=== PATIENT | female | born 1955 | race Caucasian/White ===

== ENCOUNTER 2024-11-02 09:24 | Outpatient (REF) | payer OTHER, SELFPAY ==
--- OUTSIDE RECORDS SUMMARY | 2024-11-02 11:05 | XMS_ITS | Clinical Summary ---
Author Organization [facility] ity Address [address] [place] [address] Care Team Providers Care Extruding Machine Operator Name Role Phone Stefan Mer Denae WALL MAN Primary Care Provider [phone] Allergies Active Allergy Reactions Criticality Noted Date Comments Nicotine 02/04/2022 Hallucinations Medications cilostazoL (PLETAL) 50 mg tablet TAKE 1 TABLET BY MOUTH TWICE DAILY 180 tablet 1 4 Active alirocumab (Praluent Pen) 150 mg/mL pen injector Inject 1 mL into the skin every 14 days. 4 Active meclizine (ANTIVERT) 25 mg tablet Take 1 Tablet by mouth 3 times daily as needed. Active METOCLOPRAMIDE HCL ORAL Take 10 mg by mouth daily. Active omeprazole (PriLOSEC) [address] capsule Take 1 Capsule by mouth daily. Active metoprolol succinate (TOPROL-XL) 50 mg 24 hr tablet Take 1 Tablet by mouth daily. 2 Active cyclobenzaprin e (FLEXERIL) 10 mg tablet Take 10 mg by mouth as needed. Active meloxicam (MOBIC) 15 mg tablet Take 15 mg by mouth as needed. Active aspirin 81 mg chewable tablet 81 mg daily. 6 Active levothyroxine (SYNTHROID, LEVOTHROID) 150 mcg tablet Take 150 mcg by mouth daily. Active metFORMIN (GLUCOPHAGE) 1,000 mg tablet Take 1,000 mg by mouth 2 Times Daily. Active nitroglycerin (NITROSTAT) 0.[address] under the tongue. Place 1 Tablet under the tongue every 5 minutes as needed for Chest pain. 3 Active clopidogreL (PLAVIX) 75 mg tablet TAKE 1 TABLET BY MOUTH DAILY 90 tablet 1 5 Active clopidogreL (PLAVIX) 75 mg tablet TAKE 1 TABLET BY MOUTH DAILY 4 10/20/19 25 Discontinued Active Problems Problem Noted Date Diagnosed Date Peripheral vascular disease ([facility] V24) 2022 Overview (09/12/2024): Last Assessment & Plan: The patient reports continued claudication symptoms; however, she reports that they are much improved from the last time she saw Dr. Cosby in November 2022. She is able to continue to push through them and remain active. She has no ulcers or wounds; she does appear to have some rest pain, but once again it does not appear to be intrusive and she reiterates that it is improved from previous. She is unsure if she is taking her cilostazol today; she will call us once she is home and we will review her medication list in detail with her ensure that it is correct. Otherwise, continue with conservative medical management including Eliquis, cilostazol, daily aspirin, and Praluent. She also remains on Plavix for both her coronary artery disease and her vascular disease. She will call with any new or worsening symptoms. Claudication of both lower extremities ([facility] V24) 02/09/2022 Overview (09/12/2024): Last Assessment & Plan: As above. Improved from her last visit with Dr. Cosby in 11/2022 per the patient's report; she will call with any new or worsening symptoms including nonhealing wounds or ulcers. Anxiety 02/04/2022 Transient ischemic attack (TIA) 05/13/2021 Hypertriglyceridemia 05/01/2021 Coronary artery disease of n ative artery of [place] heart with stable angina pectoris ([facility] V24) 11/27/2020 Overview (09/12/2024): Last Assessment & Plan: The patient is now status post CABG with what she reports as ongoing and stable anginal symptoms that are relieved with rest and nitroglycerin; she reports that sometimes she is able to ignore them and they are not significant. We will continue with goal-directed medical therapies including beta-izabela, long-acting nitrates, Praluent, and aspirin; she will check when she gets home to make sure that she is taking isosorbide and call us as noted above. She remains on Plavix both for her coronary artery disease s well as her vascular disease. She is due to see her primary legal administrative secretary, Dr. Mireles, next month. Patient advised to seek emergency medical attention by calling 911 if they were to develop severe dyspnea, chest pain that did not resolve with rest or nitroglycerin, or if they were to faint. Diabetes mellitus type 2, no ninsulin dependent ([facility] V24, [facility] V28) 11/27/2020 Essential hypertension 11/27/2020 Overview (09/12/2024): Last Assessment & Plan: Blood pressure is well-controlled on current medical therapies including metoprolol and isosorbide; she reports she is unsure if she is taking her isosorbide today but she will check on this when she gets home and call us at which time we will review her med list in its entirety. Hyperlipidemia 11/27/2020 Overview (09/12/2024): Last Assessment & Plan: The patient's most recent lipid panel was completed 05/13/2022 revealing an LDL of 35; she has been stable on Praluent. LDL goal for this patient was a history of diabetes as well as coronary artery disease and peripheral arterial disease is less than 55. Continue without change. Hypothyroidism 11/27/2020 NSTEMI (non-ST elevated myoc ardial infarction) ([facility] V24, [facility] V28) 11/27/2020 Surgical History Surgery Date Site/Laterality Comments CHOLECYSTECTOMY 02/17/2014 PROCEDURE: HISTORICAL CHOLECYSTECTOMY Medical History Medical History Date Comments TIA (transient ischemic attack) DX:TIA (transient ischemic attack) Chest pain, precordial DX:Chest pain, precordial Chronic back pain DX:Chronic jagruti k pain Depression DX:Depression Migraines DX:Migraines SOBOE (shortness of breath on exertion) DX:SOBOE (shortness of breath on exertion) Colitis DX:Colitis Family History Medical History Relation Name Comments Coronary artery disease Brother Coronary artery disease Father Relation Name Status Comments Brother Father Social History Tobacco Use Types Packs/Day Years Used Date Smoking Tobacco: Some Days Cigarettes Smokeless Tobacco: Current Alcohol Use Standard Drinks/Week Comments Never 0 (1 standard drink = 0.6 oz pur e alcohol) Comments Unknown Sex and Gender Information Value Date Recorded Sex Assigned at Not on file Legal Sex Female 5:35 AM EST Gender Identity Not on file Sexual Orientation Not on file Obstetrics History Last Filed Vital Signs Vital Sign Reading Time Taken Comments Blood Pressure 100/60 12/01/2023 9:16 AM EDT Sitting L Arm Pulse 76 12/01/2023 9:16 AM EDT Temperature - - Respiratory Rate - - Oxygen Saturation - - Inhaled Oxygen Concentration - - Weight 60.1 kg (132 lb 6.4 oz) 12/01/2023 9:16 AM EDT Height 157.5 cm (5' 2 ) 12/01/2023 9:16 AM EDT Body Mass Index 24.22 12/01/2023 9:16 AM EDT Plan of Treatment Upcoming Encounters Date Type Department Care Team (Late st Contact Info) Description 12/29/2024 8:10 AM EDT Office Visit [facility] [address] [place] [address] [place] [address] Dave Mccoy NP [address] [place] [address] Dr [address] [place] [address] Health Maintenance Due Date Last Done Comments Diabetes: Annual Foot Exam 01/24/1964 Diabetes: Annual Retina Eye Exam 01/24/1964 DTaP,Tdap,and Td Vaccines (1 - Tdap) 1973 Pneumococcal Vaccine: 50+ Years (1 of 2 - PCV) 1973 Zoster Vaccines (1 of 2) 01/24/2004 RSV Immunization Adult Patients (1 - Risk 60-74 years 1-dose series) 2014 Cholesterol Screening (Lipid Panel) 06/27/2022 Colorectal Cancer Screening: Colonoscopy 06/27/2022 Depression Screening 06/27/2022 Falls Risk Assessment 06/27/2022 Hepatitis C Screening 06/27/2022 Medicare Annual Wellness Visit 06/27/2022 Social Influencers of Health Screening 06/27/2022 Diabetes: Annual Urine Albumin-Creatinine Ratio (uACR) 07/01/2022 Diabetes: Blood Sugar Contro l Test (HGBA1C) 07/01/2022 Breast Cancer Screening 07/31/2023 07/31/19, 03/14/2018 COVID-19 Vaccine ( - 2023-2 5 season) 2024 Diabetes: Annual GFR (Glomerular Filtration Rate) 06/14/2024 06/14/2023 Hypertension/CHF/CAD Annual BMP Blood Test 06/14/2024 06/14/2023 Influenza Vaccine (Season Ended) 2025 Osteoporosis Screening (Bone Density Screening) 07/31/2031 07/31/2021, 03/14/2018 HIB Vaccines Aged Out No longer eligi ble based on patient's age to complete this topic HPV Vaccines Aged Out No longer eligi ble based on patient's age to complete this topic Hepatitis A Vaccines Aged Out No long er eligible based on patient's age to complete this topic Hepatitis B Vaccines Aged Out No long er eligible based on patient's age to complete this topic IPV Vaccines Aged Out No longer eligi ble based on patient's age to complete this topic MMR Vaccines Aged Out No longer eligi ble based on patient's age to complete this topic Meningococcal ACWY Vaccine Aged Out N o longer eligible based on patient's age to complete this topic Meningococcal B Vaccine Aged Out No l onger eligible based on patient's age to complete this topic RSV Immunization Patients Under 20 months Aged Out No longer eligible b ased on patient's age to complete this topic Varicella Vaccines Aged Out No longer eligible based on patient's age to complete this topic Procedures Procedure Name Priority Date/Time Associated Diagnosis Comments ANNUAL BMP BLOOD TEST Routine 06/14/2023 [facility] DEXA AXIAL SKELETON Routine 07/31/2021 9:17 AM EST Encounter for screening for osteoporosis [facility] SCREENING DIGITAL Routine 07/31/2021 8:55 AM EST Encounter for screening mammogram for malignant neoplasm of breast from Last 3 Months or Most Recently Relevant to Health Maintenance Results * Annual BMP Blood Test (06/14/2023) Annual BMP Blood Test abstracted Historical Provider HEALTH MAINTENANCE Final Result * [facility] DEXA AXIAL SKELETON (07/31/2021 9:17 AM EST) Anatomical Region Laterality Modality Mammography 07/31/2021 8:21 AM EST Narrative 07/31/2021 9:17 AM EST [facility] Diagnostic Imaging Department [address] [place] [id number] Patient: ??ARIEL LONG ?/Age/Sex: 1955 - Unit#: ??[id number] ? Location/Status: ??SPDIMAM/REG CLI ? Mnemonic/Ordering Site: ??MAMDEXAAX/SPMAM Ordering Physician: ??ANDRIY MANSFIELD MD [facility] Dexa Axial Skeleton - 07/31/21848 HISTORY: ??The patient is a 66-year-old postmenopausal female smoker with clinical concern for metabolic bone disease. FINDINGS: ??Dual energy x-ray absorptiometry of the lumbar spine and femurs is performed. The mean bone mineral density at L1-L4 is 1.292 gm/cm2 which is 110% of that of young normals and 131% of that of age matched controls. This yields a T-score of 0.9 and a Z-score of 2.5 and there is therefore no evidence of osteoporosis or osteopenia here. The mean bone mineral density of the femurs bilaterally is 1.001 gm/cm2 which is 99% of that of young normals and 119% of that of age matched controls. ??This yields a T-score of -0.1 and a Z-score of 1.3 and there is therefore no evidence of osteoporosis or osteopenia here. ??However, the T-score of the right femoral neck is -1.5 which is diagnostic of osteopenia. IMPRESSION: 1. Osteopenia. ??There has been an increase of 2.1% in bone mineral density in the lumbar spine since the prior examination of 03/14/2018. ??There has been an increase of 7.3% in bone mineral density in the right femur and an increase of 5.5% in bone mineral density in the left femur. 2. FRAX analysis yields a 10-year probability of major osteoporotic fracture of 5.4% and a 10-year probability of hip fracture of 1.0%. Code 63848 Dictating Physician: ??BARRY COSTELLO MD Electronically Signed by: ??BARRY COSTELLO MD Dic Date/Time: ??07/31/21914 Sign date/Time: ??07/31/21916 Procedure Note Barry Costello MD - 07/08/2022 [facility] Diagnostic Imaging Department [address] [place] [address] Patient: ARIEL LONGO.B./Age/Sex: 1955 - 66 - F Unit#: [id number] Location/Status: SPDIMAM/REG CLI [facility] Ordering Physician: ANDRIY MANSFIELD MD [facility] Dexa Axial Skeleton - 07/31/21 - 49 HISTORY: The patient is a 66-year-old postmenopausal female smoker with clinical concern for metabolic bone disease. FINDINGS: Dual energy x-ray absorptiometry of the lumbar spine and femursis performed. The mean bone mineral density at L1-L4 is 1.292 gm/cm2 which is110% of that of young normals and 131% of that of age matched controls. Thisyields a T-score of 0.9 and a Z-score of 2.5 and there is therefore no evidenceof osteoporosis or osteopenia here. The mean bone mineral density of the femurs bilaterally is 1.001 gm/ln2auyss is 99% of that of young normals and 119% of that of age matched controls.This yields a T-score of -0.1 and a Z-score of 1.3 and there is therefore noevidence of osteoporosis or osteopenia here. However, the T-score of the rightfemoral neck is -1.5 which is diagnostic of osteopenia. IMPRESSION: 1. Osteopenia. There has been an increase of 2.1% in bone mineral densityin the lumbar spine since the prior examination of 03/14/2018. There has beenan increase of 7.3% in bone mineral density in the right femur and anincrease of 5.5% in bone mineral density in the left femur. 2. FRAX analysis yields a 10-year probability of major osteoporoticfracture of 5.4% and a 10-year probability of hip fracture of 1.0%. Code 72706 Dictating Physician: BARRY COSTELLO MD Electronically Signed by: BARRY COSTELLO MD Dic Date/Time: 07/31/21914 Sign date/Time: 07/31/21916 Andriy Mansfield MD IMG BI PROCEDURES Final Result * [facility] SCREENING DIGITAL (07/31/2021 8:55 AM EST) Anatomical Region Laterality Modality Mammography 07/31/2021 8:18 AM EST Narrative 07/31/2021 8:55 AM EST [facility] Diagnostic Imaging Department [address] [place] [address] Patient: ??ARIEL LONG ?/Age/Sex: 1955 - 66 - F Unit#: ??[id number] ? Location/Status: ??SPDIMAM/REG CLI ? Mnemonic/Ordering Site: ??DIGSC/SPMAM Ordering Physician: ??ANDRIY MANSFIELD MD [facility] Screening Digital - 07/31/21832 EXAM: [facility] Screening Digital EXAM DATE AND TIME: 07/31/2021 8:34 AM HISTORY: ??Screening. COMPARISON: ??03/14/18, 01/24/15, 07/31/13 TECHNIQUE: CC and MLO views of both breasts were obtained using full field digital mammography. Bilateral digital breast tomosynthesis was performed in the MLO projection. Computer aided detection with the Aquaporin 7.2-H was employed. TISSUE DENSITY: a. The breasts are almost entirely fatty. FINDINGS: A 4 mm circumscribed nodule is present in the anterior left breast, approximately 2-3 o'clock deep to the areola. Targeted ultrasound is recommended for further assessment. No grouped microcalcifications or areas of architectural distortion are seen. Minimal vascular calcification is noted. The skin is unremarkable. IMPRESSION: 1. 4 mm left breast nodule, for which targeted ultrasound is recommended. The patient will be called back. 2. Stable mammographic appearance of the right breast. No evidence of malignancy is seen. BI-RADS: ??Category 0: Incomplete - Need Additional Imaging Evaluation RECOMMENDATION(S): 1: Ultrasound follow-up LEFT 09297, [id number] 3340F, 7025F Dictating Physician: ??SARAHY ARMSTRONG MD Electronically Signed by: ??SARAHY ARMSTRONG MD Dic Date/Time: ??07/31/21852 Sign date/Time: ??07/31/21854 Procedure Note Sarahy Armstrong MD - 07/08/2022 [facility] Diagnostic Imaging Department [address] [place] [id number] Patient: AREIL LONG /Age/Sex: 1955 - 66 - F Unit#: [id number] Location/Status: [facility] CLI Mnemonic/Ordering Site: [facility] Ordering Physician: ANDRIY MANSFIELD MD [facility] Screening Digital - 07/31/21 - 832 EXAM: [facility] Screening Digital EXAM DATE AND TIME: 07/31/2021 8:34 AM HISTORY: Screening. COMPARISON: 03/14/18, 01/24/15, 07/31/13 TECHNIQUE: CC and MLO views of both breasts were obtained using fullfield digital mammography. Bilateral digital breast tomosynthesis was performedin the MLO projection. Computer aided detection with the Aquaporin 7.2-[employer] employed. TISSUE DENSITY: a. The breasts are almost entirely fatty. FINDINGS: A 4 mm circumscribed nodule is present in the anterior left breast, approximately 2-3 o'clock deep to the areola. Targeted ultrasound isrecommended for further assessment. No grouped microcalcifications or areas of architectural distortion areseen. Minimal vascular calcification is noted. The skin is unremarkable. IMPRESSION: 1. 4 mm left breast nodule, for which targeted ultrasound is recommended.The patient will be called back. 2. Stable mammographic appearance of the right breast. No evidence of malignancy is seen. BI-RADS: Category 0: Incomplete - Need Additional Imaging Evaluation RECOMMENDATION(S): 1: Ultrasound follow-up LEFT 32179, [id number] 3340F, 7025F Dictating Physician: SARAHY ARMSTRONG MD Electronically Signed by: SARAHY ARMSTRONG MD Dic Date/Time: 07/31/2153 Sign date/Time: 07/31/21854 Andriy Mansfield MD IMG BI PROCEDURES Final Result from Last 3 Months or Most Recently Relevant to Health Maintenance Insurance [facility] MEDICARE Member Subscriber Plan / Payer (Ef fective 2024-Present) Name:Rico ComerCarlinAriel massey Relation to Subscriber:Self Name:Rico ComerCarlin, Ariel Payer ID:[id number] Group ID:Not on file Type:Not on file Address: [place] [address] [address] [address] Care Teams Extruding Machine Operator Relationship Specialty Start Date End Date Mer Aviles NP [address] [place] [address] PCP - General 11/18/21
[2024-11-02 14:39] LABS: Estimated Average Glucose 180 mg/dL; Hemoglobin A1C 237.5722 umol/L; Hemoglobin A1c % 7.9 % (<6.0); Total Hemoglobin (HGBA1C) 3812.0363 umol/L
[2024-11-02 14:46] LABS: Alanine Aminotransferase 22 U/L (0-31); Albumin Level 4.3 g/dL (3.5-5.0); Alkaline Phosphatase 84 U/L (39-117); Aspartate Amino Transferase 21 U/L (5-31); Bilirubin Total 0.2 mg/dL (0.0-1.0); Blood Urea Nitrogen 19 mg/dL (9-16); Calcium 9.9 mg/dL (8.4-10.2); Estimated Glomerular Filt Rate 55; Glucose Random 211 mg/dL (60-115); Total Protein 7.3 g/dL (6.5-8.0)
[2024-11-02 15:01] LABS: Anion Gap 15 (12-20); Carbon Dioxide 26 mmol/L (22-29); Chloride 101 mmol/L (96-108); Potassium 4.5 mmol/L (3.3-5.1); Sodium 137 mmol/L (135-145)
== END 2024-11-02 09:25 | disposition home or self-care (01) ==
LOC: HO.CHCLDS 09:24
PROVIDERS: Visit Provider Nurse Practitioner
DX: E03.9 Hypothyroidism, unspecified (principal); Z13.1 Encounter for screening for diabetes mellitus
CPT/HCPCS: 36415; 80053; 83036; 84443

== ENCOUNTER 2024-11-28 09:30 | Outpatient (REF) | payer OTHER, SELFPAY ==
[2024-11-28 15:02] LABS: Free T4 (Free Thyroxine) 1.34 ng/dL (0.71-1.85); Thyroid Stimulating Hormone 0.29 uIU/mL (0.32-4.0)
== END 2024-11-28 09:31 | disposition home or self-care (01) ==
LOC: HO.CHCLDS 09:30
PROVIDERS: PCP Nurse Practitioner; Visit Provider Nurse Practitioner
DX: E03.9 Hypothyroidism, unspecified (principal)
CPT/HCPCS: 36415; 84439; 84443

== ENCOUNTER 2025-04-24 09:43 | Outpatient (REF) | payer OTHER, SELFPAY ==
--- OUTSIDE RECORDS SUMMARY | 2025-04-24 11:24 | XMS_ITS | Clinical Summary ---
Author Organization [facility] [email or web address] Address [address] [place] [address] Phone Care Team Providers Care Residence Supervisor Name Role Phone Mer Aviles EVP OPERATIONS Primary Care Provider [phone] Allergies Active Allergy Reactions Criticality Noted Date Comments Nicoderm Hallucinations 12/29/2024 Nicotine 02/04/2022 Hallucinations Medications cilostazoL (PLETAL) 50 mg tablet TAKE 1 TABLET BY MOUTH TWICE DAILY 180 tablet 1 4 Active meclizine (ANTIVERT) 25 mg tablet Take 1 Tablet by mouth 3 times daily as needed. Active METOCLOPRAMIDE HCL ORAL Take 10 mg by mouth daily. Active omeprazole (PriLOSEC) [address] capsule Take 1 Capsule by mouth daily. Active metoprolol succinate (TOPROL-XL) 50 mg 24 hr tablet Take 1 Tablet by mouth daily. 2 Active cyclobenzaprine (FLEXERIL) 10 mg tablet Take 10 mg by mouth as needed. Active meloxicam (MOBIC) 15 mg tablet Take 15 mg by mouth as needed. Active aspirin 81 mg chewable tablet 81 mg daily. 6 Active levothyroxine (SYNTHROID, LEVOTHROID) 150 mcg tablet Take 150 mcg by mouth daily. Active metFORMIN (GLUCOPHAGE) 1,000 mg tablet Take 1,000 mg by mouth 2 Times Daily. Active clopidogreL (PLAVIX) 75 mg tablet TAKE 1 TABLET BY MOUTH DAILY 90 tablet 1 5 Active glipiZIDE (GLUCOTROL) 5 mg tablet Take 1 tablet (5 mg total) by mouth 1 (one) time each day. Active alirocumab (Praluent Pen) 150 mg/mL pen injectorIndication s:Coronary artery disease, unspecified vessel or lesion type, unspecified whether angina present, unspecified whether yocha dehe or transplanted heart Inject 1 mL (150 mg total) as directed every 14 (fourteen) days. 6 Pen 3 5 Active icosapent ethyL (Vascepa) 1 gram capsuleIndications :Coronary artery disease, unspecified vessel or lesion type, unspecified whether angina present, unspecified whether yocha dehe or transplanted heart,Hyperlipidem ia, unspecified hyperlipidemia type Take 2 capsules (2 g total) by mouth 2 (two) times a day with meals. 360 capsule 3 5 Active nitroglycerin (NITROSTAT) 0.[address] 1 tablet (0.4 mg total) under the tongue every 5 (five) minutes if needed for chest pain. Place 1 Tablet under the tongue every 5 minutes as needed for Chest pain. 100 tablet 1 5 Active nitroglycerin (NITROSTAT) 0.[address] under the tongue. Place 1 Tablet under the tongue every 5 minutes as needed for Chest pain. 3 025 Discontin ued(Reord er) nitroglycerin (NITROSTAT) 0.[address] 1 tablet (0.4 mg total) under the tongue every 5 (five) minutes if needed for chest pain. Place 1 Tablet under the tongue every 5 minutes as needed for Chest pain. 100 tablet 1 5 025 Discontin ued(Reord er) Active Problems Problem Noted Date Diagnosed Date Chest pain 12/29/2024 Chronic back pain 12/29/2024 Depression 12/29/2024 Insufficient sleep syndrome 12/29/2024 Migraines 12/29/2024 Smoker 12/29/2024 Assessment & Plan (12/29/2024 9:06 AM EDT): She continues to smoke and does not wish to quit at this time. SOBOE (shortness of breath on exertion) 12/30/19 25 Hypothyroid 12/29/2024 Peripheral vascular disease (CMS/HCC V24) 2022 Assessment & Plan (12/29/2024 9:06 AM EDT): She continues to have stable claudication. Continue with aspirin, alirocumab, clopidogrel, metoprolol and prn nitroglycerin. We discussed risk reduction through lifestyle choices including healthy diet, routine exercise and weight management. Her diabetes and tobacco use continue to be a major risk factor and target for intervention. Continue to follow with Dr. Cosby. Claudication of both lower extremities ([facility] V24) 02/09/2022 Anxiety 02/04/2022 Transient ischemic attack (TIA) 05/13/2021 Hypertriglyceridemia 05/01/2021 Diabetes mellitus type 2, no ninsulin dependent ([facility] V24, [facility] V28) 11/27/2020 Hyperlipidemia 11/27/2020 Assessment & Plan (12/29/2024 9:06 AM EDT): 05/13/2022 - LDL of 35. Will update lipid panel. Continue with alirocumab. Orders: Lipid panel; Future Hypothyroidism 11/27/2020 NSTEMI (non-ST elevated myoc ardial infarction) ([facility] V24, [facility] V28) 11/27/2020 Hx of CABG 11/27/2020 CAD (coronary artery disease) 11/27/2020 Overview (12/29/2024): three vessel coronary disease discovered in the setting of a NSTEMI and atypical symptoms with placement of one VANNA to her LAD artery and one VANNA to her Ramus Negative nuclear stress test, but with concerning symptoms was submitted for repeat angiogram and stenting a FFR positive proximal LAD lesion. Ultimately in March 2020 she had unstable angina and underwent an urgent four-vessel coronary artery bypass grafting with ALVARADO to LAD, left radial to OM1, SVG to diagonal and SVG to RCA Assessment & Plan (12/29/2024 9:06 AM EDT): Catheterization from 2019 showed multivessel disease with FFR positive proximal LAD lesion status post successful CABG. Echocardiogram from 2020 showed preserved LV systolic function. No clear cut anginal symptoms. Her twice a month episodes may be related to blood sugars. Continue with aspirin, alirocumab, clopidogrel, metoprolol and prn nitroglycerin. We discussed risk reduction through lifestyle choices including healthy diet, routine exercise and weight management. Her diabetes and tobacco use continue to be a major risk factor and target for intervention. Orders: ECG 12 lead alirocumab (Praluent Pen) 150 mg/mL pen injector; Inject 1 mL (150 mg total) as directed every 14 (fourteen) days. Lipid panel; Future HTN (hypertension) 11/27/2020 Assessment & Plan (12/29/2024 9:06 AM EDT): Controlled. Continue metoprolol. Orders: ECG 12 lead Encounters Date Type Department Care Team Description 03/27/2025 Telephone [facility] Cardiology [facility] [address] [place] [address] Dave Mccoy NP 03/26/2025 Telephone [facility] [address] [place] [address] [place] [address] Jose Mireles MD 01/28/2025 Telephone [facility] [address] [place] [address] Dave Mccoy NP from Last 3 Months Surgical History Surgery Date Site/Laterality Comments CHOLECYSTECTOMY [...] = 0.6 oz pur e alcohol) Comments No Sex and Gender Information Value Date Recorded Sex Assigned at Female 11/20/2024 10:12 AM EDT Legal Sex Female 5:35 AM EST Gender Identity Female 11/20/2024 10:12 AM EDT Sexual Orientation Straight 11/20/2024 10 :12 AM EDT Obstetrics History Para Term AB IAB SAB Ectopic Multiple Livin g Live Births 4 Last Filed Vital Signs Vital Sign Reading Time Taken Comments Blood Pressure 130/72 12/29/2024 8:02 AM EDT Pulse 64 12/29/2024 8:02 AM EDT Temperature - - Respiratory Rate - - Oxygen Saturation 96% 12/29/2024 8:02 AM EDT Inhaled Oxygen Concentration - - Weight 65.3 kg (144 lb) 01/04/2025 7:55 AM EDT Height 157.5 cm (5' 2 ) 01/04/2025 7:55 AM EDT Body Mass Index 26.34 01/04/2025 7:55 AM EDT Plan of Treatment Upcoming Encounters Date Type Department Care Team (Late st Contact Info) Description 01/07/2026 9:30 AM EDT [facility]ointment [facility] [address] [address] Health Maintenance Due Date Last Done Comments Colorectal Cancer Screening: Colonoscopy 1955 Diabetes: Annual Foot Exam 01/24/1964 Diabetes: Annual Retina Eye Exam 01/24/1964 Zoster Vaccines (1 of 2) 01/24/2004 RSV Immunization Adult Patients (1 - Risk 60-74 years 1-dose series) 2014 Pneumococcal Vaccine: 50+ Years (2 of 2 - PPSV23, PCV20, or PCV21) 04/24/2019 02/27/2019 Falls Risk Assessment 06/27/2022 Hepatitis C Screening 06/27/2022 Medicare Annual Wellness Visit 06/27/2022 Social Influencers of Health Screening 06/27/2022 Diabetes: Annual Urine Albumin-Creatinine Ratio (uACR) 07/01/2022 Diabetes: Blood Sugar Contro l Test (HGBA1C) 07/01/2022 Diabetes: Annual GFR (Glomerular Filtration Rate) 06/14/2024 06/14/2023 Hypertension/CHF/CAD Annual BMP Blood Test 06/14/2024 06/14/2023 Depression Screening 07/19/2024 DTaP,Tdap,and Td Vaccines (2 - Td or Tdap) 02/12/2025 02/12/2015 COVID-19 Vaccine (3 - 2024-2 6 season) 2025 09/19/2020, 08/30/2020 Influenza Vaccine (#1) 2025 Breast Cancer Screening 01/04/2027 01/05/20, 07/31/2021, 03/14/2018 Cholesterol Screening (Lipid Panel) 01/01/2030 01/01/2025 Osteoporosis Screening (Bone Density Screening) 01/04/2035 01/04/2025, 07/31/2021, 03/14/2018 HIB Vaccines Aged Out No [...] Procedure Name Priority Date/Time Associated Diagnosis Comments BD BONE DENSITY DXA AXIAL SKELETON Routine 01/04/2025 8:55 AM EDT Other specified disorders of bone density and structure, unspecified site MG MAMMO DIGITAL SCREENING W VARUN BILAT Routine 01/04/2025 8:02 AM EDT Encounter for screening mammogram for malignant neoplasm of breast LIPID PANEL Routine 01/01/2025 8:07 AM EDT Coronary artery disease, unspecified vessel or lesion type, unspecified whether angina present, unspecified whether yocha dehe or transplanted heart Hyperlipidemia, unspecified hyperlipidemia type HM ANNUAL BMP BLOOD TEST Routine 06/14/2023 from Last 3 Months or Most Recently Relevant to Health Maintenance Results * BD Bone Density DXA Axial Skeleton (01/04/2025 8:55 AM EDT) Anatomical Region Laterality Modality Wrist, Hip, L-spine Bone Densito metry 01/04/2025 9:42 AM EDT Impressions 01/04/2025 9:44 AM EDT 1. Osteopenia. There has been a decrease of 0.4% in bone mineral density in the lumbar spine since the prior examination of 07/31/2021. There has been an increase of 1.8% in bone mineral density in the right femur and an increase of 3.8% in bone mineral density in the left femur. 2. FRAX analysis yields a 10-year probability of major osteoporotic fracture of 5.8% and a 10-year probability of hip fracture of 1.3%. Code 86083 -------- FINAL REPORT -------- Dictated By: Manohar Costello Dictated Date: 01/04/2025 09:42 ET Assigned Physician: Manohar Costello Reviewed and Electronically Signed By: Manohar Costello Signed Date: 01/04/2025 09:44 ET Workstation ID: [id number] Transcribed By: Self Edit Transcribed Date: 01/04/2025 09:42 ET Narrative 01/04/2025 9:44 AM EDT HISTORY: The patient is a 69-year-old postmenopausal female with clinical concern for metabolic bone disease. FINDINGS: Dual energy x-ray absorptiometry of the lumbar spine and femurs is performed. The mean bone mineral density at L1-2 is 1.247 gm/cm2 which is 107% of that of young normals and 129% of that of age matched controls. This yields a T-score of 0.7 and a Z-score of 2.3 and there is therefore no evidence of osteoporosis or osteopenia here. The mean bone mineral density of the femurs bilaterally is 1.029 gm/cm2 which is 102% of that of young normals and 125% of that of age matched controls. This yields a T-score of 0.2 and a Z-score of 1.7 and there is therefore no evidence of osteoporosis or osteopenia here. However, the T-score of the right femoral neck is -1.4 which is diagnostic of osteopenia. Procedure Note Manohar Costello MD - 01/04/2025 HISTORY: The patient is a 69-year-old postmenopausal female with clinicalconcern for metabolic bone disease. FINDINGS: Dual energy x-ray absorptiometry of the lumbar spine and femursis performed. The mean bone mineral density at L1-2 is 1.247 gm/cm2 whichis 107% of that of young normals and 129% of that of age matched controls.This yields a T-score of 0.7 and a Z-score of 2.3 and there is thereforeno evidence of osteoporosis or osteopenia here. The mean bone mineral density of the femurs bilaterally is 1.029 gm/ju4stgos is 102% of that of young normals and 125% of that of age matchedcontrols. This yields a T-score of 0.2 and a Z-score of 1.7 and there istherefore no evidence of osteoporosis or osteopenia here. However, theT-score of the right femoral neck is -1.4 which is diagnostic ofosteopenia. IMPRESSION: 1. Osteopenia. There has been a decrease of 0.4% in bone mineral densityin the lumbar spine since the prior examination of 07/31/2021. There hasbeen an increase of 1.8% in bone mineral density in the right femur and anincrease of 3.8% in bone mineral density in the left femur. 2. FRAX analysis yields a 10-year probability of major osteoporoticfracture of 5.8% and a 10-year probability of hip fracture of 1.3%. Code 53971 -------- FINAL REPORT -------- Dictated By: Manohar Costello Dictated Date: 01/04/2025 09:42 ET Assigned Physician: Manohar Costello Reviewed and Electronically Signed By: Manohar Costello Signed Date: 01/04/2025 09:44 ET Workstation ID: [id number] Transcribed By: Self Edit Transcribed Date: 01/04/2025 09:42 ET us Mer Aviles EVP OPERATIONS IMG DXA PROCEDURES Final Result * MG Mammo Digital Screening w Varun bilat (01/04/2025 8:02 AM EDT) Anatomical Region Laterality Modality Breast Bilateral Mammography 01/04/2025 8:10 AM EDT Impressions 01/04/2025 8:14 AM EDT No mammographic evidence of malignancy. A negative mammogram in the presence of a clinically suspicious palpable abnormality does not preclude the possibility of malignancy or alter the indications for biopsy. PQRI CPT II 3342F Code 90301, 30859 PQRI 225 CPT II 7025F TISSUE DENSITY: There are scattered areas of fibroglandular density. (BI-RADS category B) IMPRESSION: Benign. BI-RADS CATEGORY: 2 - BENIGN RECOMMENDATION: Screening bilateral mammogram is recommended in 1 year. Mammo Location: [facility], [address] [place] [address] -------- FINAL REPORT -------- Dictated By: Manohar Costello Dictated Date: 01/04/2025 08:10 ET Assigned Physician: Manohar Costello Reviewed and Electronically Signed By: Manohar Costello Signed Date: 01/04/2025 08:14 ET Workstation ID: [id number] Transcribed By: Self Edit Transcribed Date: 01/04/2025 08:10 ET Narrative 01/04/2025 8:14 AM EDT CLINICAL: The patient is a 69 years Female presenting for routine screening mammography. COMPARISON: Most recently 08/05/2022 and most remotely 03/14/2018. TECHNIQUE: Full-field digital mammography of the breasts bilaterally consisting of tomosynthesis in MLO and CC projection is performed in the Lens[employer]ore 2000-D unit. Computer aided detection utilizing the iCAD system was utilized. FINDINGS: The breasts are seen to be composed of a combination of fatty and fibroglandular elements. The small nodule in the left breast retroareolar region seen on prior studies has nearly completely resolved. A single coarse, benign calcifications is again present in the left breast. There is no suspicious cluster of microcalcifications, mass, or area of architectural distortion. There is no skin thickening or nipple retraction. Procedure Note Manohar Costello MD - 01/04/2025 CLINICAL: The patient is a 69 years Female presenting for routinescreening mammography. COMPARISON: Most recently 08/05/2022 and most remotely 03/14/2018. TECHNIQUE: Full-field digital mammography of the breasts bilaterallyconsisting of tomosynthesis in MLO and CC projection is performed in theHitlab Senographe 2000-D unit. Computer aided detection utilizing the Simple Beatystem was utilized. FINDINGS: The breasts are seen to be composed of a combination of fattyand fibroglandular elements. The small nodule in the left breastretroareolar region seen on prior studies has nearly completely resolved.A single coarse, benign calcifications is again present in the leftbreast. There is no suspicious cluster of microcalcifications, mass, orarea of architectural distortion. There is no skin thickening or nippleretraction. IMPRESSION: No mammographic evidence of malignancy. A negative mammogram in the presence of a clinically suspicious palpableabnormality does not preclude the possibility of malignancy or alter theindications for biopsy. PQRI CPT II 3342F Code 05841, 82955 PQRI 225 CPT II 7025F TISSUE DENSITY: There are scattered areas of fibroglandular density.(BI-RADS category B) IMPRESSION: Benign. BI-RADS CATEGORY: 2 - BENIGN RECOMMENDATION: Screening bilateral mammogram is recommended in 1 year. Mammo Location: [facility], [address] [place] [id number] -------- FINAL REPORT -------- Dictated By: Manohar Costello Dictated Date: 01/04/2025 08:10 ET Assigned Physician: Manohar Costello Reviewed and Electronically Signed By: Manohar Costello Signed Date: 01/04/2025 08:14 ET Workstation ID: [id number] Transcribed By: Self Edit Transcribed Date: 01/04/2025 08:10 ET us Mer Aviles EVP OPERATIONS IMG BI PROCEDURES Final R esult * (ABNORMAL) Lipid panel (01/01/2025 8:07 AM EDT) Cholesterol Total 255(H) 100 - 199 mg/dL [facility] 1 Triglycerides 445(H) 0 - 149 mg/dL [facility] 1 HDL Cholesterol 53 >39 mg/dL [facility] 1 VLDL Cholesterol Calculated 79(H) 5 - 40 mg/dL [facility] 1 LDL Chol Calc ([facility]) 123(H) 0 - 99 mg/dL [facility] 1 Blood Venous blood specimen / Unknown 01/01/2025 8:07 AM EDT 01/01/2025 Narrative [facility] 1 - 01/02/2025 7:06 AM EDT Performed at: 01 - [facility] [address] [id number] Glass Installer Technician: Leida Scruggs MD, Phone: [phone] us Dave Mccoy NP LAB BLOOD ORDERABLES Final Result [facility] 1 * Annual BMP Blood Test (06/14/2023) [facility] Annual BMP Blood Test abstracted Historical Provider HEALTH MAINTENANCE Final Result from Last 3 Months or Most Recently Relevant to Health Maintenance Insurance [facility] Member Subscriber Plan / Payer (Ef fective 2020-Present) Name:Rico ComerCarlin, Lora Relation to Subscriber:Self Name:Rico ComerCarlinTamaraLora Payer ID:[id number] Group ID:[id number] Type:Not on file Address: [address] [place] [address] [employer] MEDICARE Member Subscriber Plan / Payer (Ef fective 2020-Present) Name:Gómez Carlin, Lora Relation to Subscriber:Self Name:Rico ComerCarlinTamaraLora Payer ID:[id number] Group ID:[id number] Type:Not on file Address: [address] [place] [address] Care Teams Residence Supervisor Relationship Specialty Start Date End Date Mer Aviles NP [address] [place] [address] PCP - General 11/18/21
[2025-04-24 14:57] LABS: Alanine Aminotransferase 17 U/L (0-31); Albumin Level 4.2 g/dL (3.5-5.0); Alkaline Phosphatase 69 U/L (39-117); Anion Gap 14 (12-20); Aspartate Amino Transferase 24 U/L (5-31); Blood Urea Nitrogen 18 mg/dL (9-16); Calcium 9.4 mg/dL (8.4-10.2); Carbon Dioxide 25 mmol/L (22-29); Chloride 105 mmol/L (96-108); Estimated Glomerular Filt Rate > 60; Potassium 4.5 mmol/L (3.3-5.1); Sodium 139 mmol/L (135-145); Total Protein 7.1 g/dL (6.5-8.0)
[2025-04-24 14:59] LABS: Thyroid Stimulating Hormone 0.19 uIU/mL (0.32-4.0)
== END 2025-04-24 09:44 | disposition home or self-care (01) ==
LOC: HO.CHCLDS 09:43
PROVIDERS: PCP Nurse Practitioner; Visit Provider Nurse Practitioner
DX: E11.9 Type 2 diabetes mellitus without complications (principal); E03.9 Hypothyroidism, unspecified
CPT/HCPCS: 36415; 80053; 83036; 84443

== ENCOUNTER 2025-06-04 09:07 | Outpatient (REF) | payer OTHER, SELFPAY ==
[2025-06-04 14:50] LABS: Alanine Aminotransferase 24 U/L (0-31); Albumin Level 4.5 g/dL (3.5-5.0); Alkaline Phosphatase 57 U/L (39-117); Anion Gap 14 (12-20); Aspartate Amino Transferase 26 U/L (5-31); Blood Urea Nitrogen 16 mg/dL (9-16); Calcium 9.9 mg/dL (8.4-10.2); Carbon Dioxide 24 mmol/L (22-29); Chloride 105 mmol/L (96-108); Estimated Glomerular Filt Rate > 60; Potassium 4.7 mmol/L (3.3-5.1); Sodium 138 mmol/L (135-145); Total Protein 7.2 g/dL (6.5-8.0)
[2025-06-04 14:51] LABS: Thyroid Stimulating Hormone 0.06 uIU/mL (0.32-4.0)
== END 2025-06-04 09:08 | disposition home or self-care (01) ==
LOC: HO.CHCLDS 09:07
PROVIDERS: PCP Nurse Practitioner; Visit Provider Nurse Practitioner
DX: E11.9 Type 2 diabetes mellitus without complications (principal); E03.9 Hypothyroidism, unspecified
CPT/HCPCS: 36415; 80053; 82570; 83036; 84443